=== PATIENT | male | born 1950 | race Caucasian/White ===

== ENCOUNTER 2019-10-30 15:33 | Inpatient (IN) | payer OTHER ==
[2019-10-30 18:04] VITALS: BMI 23.7
--- NOTE | 2019-10-30 20:45 | HP ---
CIWA Score Nausea/Vomitin-Int. Nausea w/Dry Heave Muscle Tremors: 3 Anxiety: 3 Agitation: 4-Moderately Restless Paroxysmal Sweats: 3 (Increased facial moisture) Orientation: 1-Uncertain about Date Tacttile Disturbances: 0-None Auditory Disturbances: 0-None Visual Disturbances: 0-None Headache: 4-Moderately Severe (States headache is a "9") CIWA-Ar Total Score: 22 - Admission Criteria OASAS Guidelines: Admission for Medically Managed Detox: Requires at least one of the followin. CIWA greater than 12 2. Seizures within the past 24 hours 3. Delirium tremens within the past 24 hours 4. Hallucinations within the past 24 hours 5. Acute intervention needed for co occurring medical disorder 6. Acute intervention needed for co occurring psychiatric disorder 7. Severe withdrawal that cannot be handled at a lower level of care (continued vomiting, continued diarrhea, abnormal vital signs) requiring intravenous medication and/or fluids 8. Patient presents the following: CIWA greater than 12 Admission Criteria Met: Admission criteria met Admitting History and Physical - Smoking History Smoking history: Current every day smoker Have you smoked in the past 12 months: Yes Aproximately how many cigarettes per day: 10 Admission ROS S - [facility] Chief Complaint: I'm here because I'm dependent on alcohol and I want to stop. It's created lots of problems at work and home. I need to get my life back." Allergies/Adverse Reactions: Allergies Allergy/AdvReac Type Severity Reaction Status Date / Time No Known Allergies Allergy Verified 10/30/19 17:57 History of Present Illness: 68 yo presents w/ alcohol withdrawal symptoms seeking detox. Denies seizures or blackouts. Alcohol use began as a teen. Currently drinks a pint of liquor or more daily x past 2 years. Nicotine use began at age 16. Currently smokes 1/2 PPD. PMHx: PPD+ MHHx: Depression. Anxiety. Sees a MH Provider off and on at [facility]. Denies thoughts of harming self or others. SHx: Domiciled. Unemployed. Denies legal issues. Search Terms: Flo Carreon, 1950 Search Date: 10/30/2019 08:43:40 PM The Drug Utilization Report below displays all of the controlled substance prescriptions, if any, that your patient has filled in the last twelve months. The information displayed on this report is compiled from pharmacy submissions to the Department, and accurately reflects the information as submitted by the pharmacies. This report was requested by: Chasidy Santos | Reference #: [id number] There are no results for the search terms that you entered. Exam Limitations: No Limitations - Ebola screening Have you traveled outside of the country in the last 21 days: No Have you had contact with anyone from an Ebola affected area: No Have you been sick,other than usual withdrawal symptoms: No Do you have a fever: No - Review of Systems Constitutional: Chills, Diaphoresis, Changes in sleep (Difficulty falling and staying asleep.), Weight Stable EENT: reports: Blurred Vision, Throat Pain (Sore throat x fews days) Respiratory: reports: Cough (x 1 week - non-productive) Cardiac: reports: No Symptoms Reported GI: reports: Diarrhea (Brownish, liquidy BM), Nausea, Vomiting : reports: No Symptoms Reported Musculoskeletal: reports: Joint Pain (Both knees sore - age related) Integumentary: reports: No Symptoms Reported Neuro: reports: Headache (Both temples - throbbing - "9". Denies head injury or hx migraines.), Tremors Endocrine: reports: Increased Thirst Hematology: reports: No Symptoms Reported Psychiatric: reports: Judgement Intact, Agitated, Anxious, Depressed ( Denies thoughts of harming self or others.), other (Unsue of date) Patient History - Patient Medical History Hx Asthma: No Hx Chronic Obstructive Pulmonary Disease (COPD): No Hx Cardiac Disorders: No Hx Hypertension: No Hx Seizures: No Hx Diabetes: No Hx Gastrointestinal Disorders: No Hx Genitourinary Disorders: No Hx Sexually Transmitted Disorders: No Hx Renal Disease (ESRD): No Hx Depression: Yes Hx Suicide Attempt: No Hx Schizophrenia: No - Patient Surgical History Past Surgical History: Yes Hx Neurologic Surgery: No Hx Cataract Extraction: No Hx Cardiac Surgery: No Hx Lung Surgery: No Hx Breast Surgery: No Hx Breast Biopsy: No Hx Abdominal Surgery: No Hx Appendectomy: No Hx Cholecystectomy: No Hx Genitourinary Surgery: No Hx Section: No Hx Orthopedic Surgery: No Other Surgical History: HERNIA-2019 Anesthesia Reaction: No - PPD History Previous Implant?: Yes Documented Results: Negative w/o proof Implanted On Prior [facility] Admission?: No PPD to be Administered?: Yes - Smoking Cessation Smoking history: Current every day smoker Have you smoked in the past 12 months: Yes Aproximately how many cigarettes per day: 10 Hx Chewing Tobacco Use: No Initiated information on smoking cessation: Yes 'Breaking Loose' booklet given: 10/30/19 - Substance & Tx. History Hx Alcohol Use: Yes Hx Substance Use: Yes Substance Use Type: Alcohol Hx Substance Use Treatment: Yes (detox, rehab) - Substances abused Alcohol Substance route: Oral Frequency: Daily Amount used: LIQUOR- 3 PINTS Age of first use: 15 Date of last use: 10/29/19 Admission Physical Exam [facility] - Vital Signs Vital Signs: Vital Signs - 24 hr 10/30/19 10/30/19 17:50 19:24 Temperature 98.1 F 98.1 F Pulse Rate 72 72 Respiratory 20 20 Rate Blood Pressure 125/80 125/80 - Physical General Appearance: Yes: Nourished, Mild Distress, Tremorous, Irritable, Sweating (Increased facial moisture), Anxious HEENTM: Yes: Hearing grossly Normal, Normal ENT Inspection, Normocephalic, Normal Voice, LINSEY, Pharynx Normal, Other (Thickened saliva) Respiratory: Yes: Lungs Clear (Pulse Ox = 97 %), Normal Breath Sounds, No Respiratory Distress Neck: Yes: No masses,lesions,Nodules, Supple Breast: Yes: Breast Exam Deferred Cardiology: Yes: Regular Rhythm, Regular Rate, S1, S2 Abdominal: Yes: Non Tender, Flat, Soft, Increased Bowel Sounds Genitourinary: Yes: Within Normal Limits Back: Yes: Normal Inspection Musculoskeletal: Yes: full range of Motion, Gait Steady Extremities: Yes: Normal Capillary Refill, Tremors (Mild tremors) Neurological: Yes: Alert, Motor Strength 5/5, Normal Response Integumentary: Yes: Normal Color, Warm, Moist (Increased facial moisture), Other (Decreased skin turgor) Lymphatic: Yes: Within Normal Limits - Diagnostic (1) Alcohol dependence, uncomplicated Current Visit: Yes Status: Acute (2) Dehydration Current Visit: Yes Status: Acute (3) History of positive PPD Current Visit: Yes Status: Chronic Cleared for Admission [facility] - Detox or Rehab [facility] Level of Care: Medically Managed Detox Regimen/Protocol: Librium Feliceed for Rehab Admission: No Breathalyzer - Breathalyzer Breathalyzer: 0 Urine Drug Screen - Test Device Lot number: [id number] Expiration date: 08/13/21 - Control Is test valid?: Yes - Results Drug screen NEGATIVE: Yes Inpatient Rehab Admission - Rehab Decision to Admit Inpatient rehab admission?: No
[2019-10-30] MEDS ORDERED: ACETAMINOPHEN 325 MG TABLET (FP) PO PRN ×2 (21:07)
[2019-10-30] MEDS ORDERED: MAGNESIUM CITRATE 300 ML BOTTLE PO PRN (21:07)
[2019-10-30] MEDS ORDERED: BISMUTH SUBSALICYLATE 524 MG/30 ML UD PO PRN (21:07)
[2019-10-30] MEDS ORDERED: MENTHOL/PHENOL 1 EACH UD MM PRN (21:07)
[2019-10-30] MEDS ORDERED: NICOTINE POLACRILEX 2 MG GUM BUC PRN (21:07)
[2019-10-30] MEDS ORDERED: chlordiazePOXIDE HCL 10 MG CAPSULE PO PRN (21:07)
[2019-10-30] MEDS ORDERED: MAG HYDROX/AL HYDROX/SIMETH 30 ML UNIT-DOSE CUP PO PRN (21:07)
[2019-10-30] MEDS ORDERED: IBUPROFEN 400 MG TABLET (FP) PO PRN (21:07)
[2019-10-30] MEDS ORDERED: guaiFENesin 200 MG/10 ML 10 ML UNIT-DOSE CUPS PO PRN (21:07)
[2019-10-30] MEDS ORDERED: MAGNESIUM HYDROX 2400MG/30ML ORAL SUSPENSION 30 ML CUP PO PRN (21:07)
[2019-10-30] MEDS: chlordiazePOXIDE HCL 25 MG CAPSULE PO SCH (22:23)
[2019-10-30] MEDS: MELATONIN 5 MG TABLETS PO PRN (22:23)
[2019-10-30] MEDS: THIAMINE HCL 100 MG TABLET (FP) PO SCH (22:23)
--- NOTE | 2019-10-31 10:27 | PN ---
S CIWA - CIWA Score Nausea/Vomitin Muscle Tremors: 2 Anxiety: 2 Agitation: 2 Paroxysmal Sweats: No Perspiration Orientation: 0-Oriented Tacttile Disturbances: 1-Very Mild Itch/Numbness Auditory Disturbances: 0-None Visual Disturbances: 0-None Headache: 2-Mild CIWA-Ar Total Score: 11 BHS Progress Note (SOAP) Subjective: alert,irritable,anxious,interrupted sleep,tremor Objective: 10/31/19 10:26 Vital Signs Temperature 97.9 F 10/31/19 06:57 Pulse Rate 56 L 10/31/19 06:57 Respiratory Rate 16 10/31/19 06:57 Blood Pressure 100/62 10/31/19 06:57 O2 Sat by Pulse Oximetry (%) labs pending Assessment: 10/31/19 10:26 withdrawal symptom Plan: continue detox librium regimen
[2019-10-31 10:36] LABS: HEMATOCRIT 39.1 % (35.4-49); MCHC 33.3 g/dl (32.0-35.9); MEAN PLT VOLUME 7.9 fl (7.5-11.1); PLATELET COUNT 353 K/MM3 (134-434); RBC 4.34 M/mm3 (4.00-5.60); RDW 16.6 % (11.9-15.9); WHITE BLOOD COUNT 9.9 K/mm3 (4.0-10.0)
[2019-10-31 10:41] LABS: ALBUMIN 3.7 g/dl (3.4-5.0); BILIRUBIN,TOTAL 0.5 mg/dL (0.2-1); BLOOD UREA NITROGEN 15.3 mg/dL (7-18); CALCIUM 9.5 mg/dL (8.5-10.1); POTASSIUM 4.6 mmol/L (3.5-5.1); TOT PROT 7.1 g/dl (6.4-8.2)
--- NOTE | 2019-10-31 10:45 | EKG ---
Test Reason : Blood Pressure : / mmHG Vent. Rate : 069 BPM Atrial Rate : 069 BPM P-R Int : 136 ms QRS Dur : 104 ms QT Int : 398 ms P-R-T Axes : 078 065 061 degrees QTc Int : 426 ms NORMAL SINUS RHYTHM NORMAL ECG NO PREVIOUS ECGS AVAILABLE Confirmed by Trevon Gill MD ([id number]) on 10/31/2019 10:44:35 AM Referred By: Confirmed By:Trevon Gill MD
[2019-10-31] MEDS: PRENATAL VITAMINS W/ FOLIC ACID TABLET (FP) PO SCH (11:15)
[2019-10-31] MEDS: NICOTINE 14 MG/24 HOURS TOPICAL PATCH TD SCH (11:15)
[2019-10-31] MEDS: chlordiazePOXIDE HCL 25 MG CAPSULE PO SCH ×2 (14:47→21:47)
[2019-10-31] MEDS: THIAMINE HCL 100 MG TABLET (FP) PO SCH (21:47)
[2019-10-31] MEDS: MELATONIN 5 MG TABLETS PO PRN (21:48)
[2019-11-01] MEDS: chlordiazePOXIDE 5 MG CAPSULE PO SCH ×3 (05:59→21:16)
[2019-11-01] MEDS: NICOTINE 14 MG/24 HOURS TOPICAL PATCH TD SCH (11:07)
[2019-11-01] MEDS: PRENATAL VITAMINS W/ FOLIC ACID TABLET (FP) PO SCH (11:07)
--- NOTE | 2019-11-01 15:16 | PN ---
S CIWA - CIWA Score Nausea/Vomitin-Mild Nausea/No Vomiting Muscle Tremors: 2 Anxiety: 2 Agitation: 2 Paroxysmal Sweats: No Perspiration Orientation: 0-Oriented Tacttile Disturbances: 1-Very Mild Itch/Numbness Auditory Disturbances: 0-None Visual Disturbances: 0-None Headache: 1-Very Mild CIWA-Ar Total Score: 9 S Progress Note (SOAP) Subjective: alert,irritable,anxious,interrupted sleep,tremor Objective: 11/01/19 15:15 Vital Signs Temperature 97.5 F L 11/01/19 13:46 Pulse Rate 60 11/01/19 13:46 Respiratory Rate 18 11/01/19 13:46 Blood Pressure 103/63 11/01/19 13:46 O2 Sat by Pulse Oximetry (%) 11/01/19 15:15 Laboratory Last Values WBC 9.9 K/mm3 (4.0-10.0) 10/31/19 07:45 RBC 4.34 M/mm3 (4.00-5.60) 10/31/19 07:45 Hgb 13.0 GM/dL (11.7-16.9) 10/31/19 07:45 Hct 39.1 % (35.4-49) 10/31/19 07:45 MCV 90.0 fl (80-96) 10/31/19 07:45 MCH 30.0 pg (25.7-33.7) 10/31/19 07:45 MCHC 33.3 g/dl (32.0-35.9) 10/31/19 07:45 RDW 16.6 % (11.9-15.9) H 10/31/19 07:45 Plt Count 353 K/MM3 (134-434) 10/31/19 07:45 MPV 7.9 fl (7.5-11.1) 10/31/19 07:45 Sodium 139 mmol/L (136-145) 10/31/19 07:45 Potassium 4.6 mmol/L (3.5-5.1) 10/31/19 07:45 Chloride 104 mmol/L (98-107) 10/31/19 07:45 Carbon Dioxide 28 mmol/L (21-32) 10/31/19 07:45 Anion Gap 6 MMOL/L (8-16) L 10/31/19 07:45 BUN 15.3 mg/dL (7-18) 10/31/19 07:45 Creatinine 1.0 mg/dL (0.55-1.3) 10/31/19 07:45 Est GFR (CKD-EPI)AfAm 89.23 10/31/19 07:45 Est GFR (CKD-EPI)NonAf 76.99 10/31/19 07:45 Random Glucose 92 mg/dL (74-106) 10/31/19 07:45 Calcium 9.5 mg/dL (8.5-10.1) 10/31/19 07:45 Total Bilirubin 0.5 mg/dL (0.2-1) 10/31/19 07:45 AST 19 U/L (15-37) 10/31/19 07:45 ALT 20 U/L (13-61) 10/31/19 07:45 Alkaline Phosphatase 91 U/L (45-117) 10/31/19 07:45 Total Protein 7.1 g/dl (6.4-8.2) 10/31/19 07:45 Albumin 3.7 g/dl (3.4-5.0) 10/31/19 07:45 RPR Titer Nonreactive (NONREACTIVE) 10/31/19 07:45 Assessment: 11/01/19 15:16 withdrawal symptom Plan: continue detox librium regimen
[2019-11-01] MEDS: MELATONIN 5 MG TABLETS PO PRN (21:16)
[2019-11-01] MEDS: THIAMINE HCL 100 MG TABLET (FP) PO SCH (21:16)
[2019-11-02] MEDS ORDERED: chlordiazePOXIDE HCL 10 MG CAPSULE PO PRN
[2019-11-02] MEDS: chlordiazePOXIDE HCL 10 MG CAPSULE PO SCH ×3 (05:50→22:12)
[2019-11-02] MEDS: NICOTINE 14 MG/24 HOURS TOPICAL PATCH TD SCH (11:16)
[2019-11-02] MEDS: PRENATAL VITAMINS W/ FOLIC ACID TABLET (FP) PO SCH (11:17)
--- NOTE | 2019-11-02 12:58 | PN ---
[facility] CIWA - CIWA Score Nausea/Vomitin-No Nausea/No Vomiting Muscle Tremors: 1-None Visible, but [place] Anxiety: 0-No Anxiety, at Ease Agitation: 0-Normal Activity Paroxysmal Sweats: No Perspiration Orientation: 0-Oriented Tacttile Disturbances: 0-None Auditory Disturbances: 0-None Visual Disturbances: 0-None Headache: 0-None Present CIWA-Ar Total Score: 1 BHS Progress Note (SOAP) Subjective: pt has no complaints. pt would like to go to rehab- to talk to counselor. O: Vital Signs - 24 hr 11/01/19 11/01/19 11/02/19 13:46 20:42 00:33 Temperature 97.5 F L 97.7 F Pulse Rate 60 61 Respiratory 18 18 18 Rate Blood Pressure 103/63 105/66 11/02/19 11/02/19 11/02/19 03:51 07:24 08:43 Temperature 97.3 F L 98.6 F Pulse Rate 48 L 58 L Respiratory 18 18 16 Rate Blood Pressure 110/62 122/77 Laboratory Tests 10/31/19 10/31/19 10/31/19 07:45 07:45 07:45 WBC 9.9 RBC 4.34 Hgb 13.0 Hct 39.1 MCV 90.0 MCH 30.0 MCHC 33.3 RDW 16.6 H Plt Count 353 MPV 7.9 Sodium 139 Potassium 4.6 Chloride 104 Carbon Dioxide 28 Anion Gap 6 L BUN 15.3 Creatinine 1.0 Est GFR (CKD-EPI)AfAm 89.23 Est GFR (CKD-EPI)NonAf 76.99 Random Glucose 92 Calcium 9.5 Total Bilirubin 0.5 AST 19 ALT 20 Alkaline Phosphatase 91 Total Protein 7.1 Albumin 3.7 RPR Titer Nonreactive a/p AUD- continue detox protocol, 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
[2019-11-02] MEDS: MELATONIN 5 MG TABLETS PO PRN (22:13)
[2019-11-02] MEDS: THIAMINE HCL 100 MG TABLET (FP) PO SCH (23:31)
[2019-11-03] MEDS ORDERED: chlordiazePOXIDE HCL 10 MG CAPSULE PO ONE (05:00)
[2019-11-03 09:48] VITALS: BP 116/74; PULSE 59; TEMP 97
[2019-11-03] MEDS: NICOTINE 14 MG/24 HOURS TOPICAL PATCH TD SCH (10:39)
[2019-11-03] MEDS: PRENATAL VITAMINS W/ FOLIC ACID TABLET (FP) PO SCH (10:39)
--- NOTE | 2019-11-03 11:27 | PN ---
S CIWA - CIWA Score Nausea/Vomitin-No Nausea/No Vomiting Muscle Tremors: 1-None Visible, but [place] Anxiety: 2 Agitation: 2 Paroxysmal Sweats: No Perspiration Orientation: 0-Oriented Tacttile Disturbances: 0-None Auditory Disturbances: 0-None Visual Disturbances: 0-None Headache: 1-Very Mild CIWA-Ar Total Score: 6 BHS Progress Note (SOAP) Subjective: pt to be discharged today. Will f/u for rehab with [facility] on Tuesday- in 2 days. Admitted for AUD- detox protocol followed, no problems during hosp stay O: Vital Signs - 24 hr 11/02/19 11/02/19 11/02/19 13:50 16:54 20:29 Temperature 98.2 F 97.3 F L 97.9 F Pulse Rate 65 65 61 Respiratory 18 18 18 Rate Blood Pressure 107/67 108/70 115/66 11/03/19 11/03/19 11/03/19 00:42 05:48 09:47 Temperature 98.2 F 97.0 F L Pulse Rate 60 59 L Respiratory 18 18 18 Rate Blood Pressure 142/65 116/74 Laboratory Tests 10/31/19 10/31/19 10/31/19 07:45 07:45 07:45 WBC 9.9 RBC 4.34 Hgb 13.0 Hct 39.1 MCV 90.0 MCH 30.0 MCHC 33.3 RDW 16.6 H Plt Count 353 MPV 7.9 Sodium 139 Potassium 4.6 Chloride 104 Carbon Dioxide 28 Anion Gap 6 L BUN 15.3 Creatinine 1.0 Est GFR (CKD-EPI)AfAm 89.23 Est GFR (CKD-EPI)NonAf 76.99 Random Glucose 92 Calcium 9.5 Total Bilirubin 0.5 AST 19 ALT 20 Alkaline Phosphatase 91 Total Protein 7.1 Albumin 3.7 RPR Titer Nonreactive
--- NOTE | 2019-11-04 17:37 | DS ---
[facility] Detox Discharge Summary Admission Date: 10/30/19 Discharge Date: 11/03/19 - History Pertinent Past History: pt to be discharged today. Will f/u for rehab with [facility] on Tuesday- in 2 days. Admitted for AUD- detox protocol followed, no problems during hosp stay - Physical Exam Results Vital Signs: Vital Signs Temperature 97.0 F L 11/03/19 09:47 Pulse Rate 59 L 11/03/19 09:47 Respiratory Rate 18 11/03/19 09:47 Blood Pressure 116/74 11/03/19 09:47 O2 Sat by Pulse Oximetry (%) - Treatment Hospital Course: Detox Protocol Followed, Detoxed Safely, Responded well - Medication Discharge Medications: Ambulatory Orders NK [No Known Home Medication] 10/30/19 - AMA Did Patient Leave Against Medical Advice: No
== END 2019-11-03 12:58 | disposition home or self-care (01) | DRG 897 ==
LOC: YASAS 15:33 → Y6N 21:54
PROVIDERS: ADMIT Allergy & Immunology; ATTEND Allergy & Immunology
PROC: HZ2ZZZZ Detoxification Services for Substance Abuse Treatment (ICD-10-PCS; principal; 2019-10-30)
DX: F10.230 Alcohol dependence with withdrawal, uncomplicated (principal); F17.210 Nicotine dependence, cigarettes, uncomplicated; F41.9 Anxiety disorder, unspecified; F32.9 Major depressive disorder, single episode, unspecified; E86.0 Dehydration; R76.11 Nonspecific reaction to tuberculin skin test without active tuberculosis
CPT/HCPCS: 36415; 71046-TC-FY; 80053; 85027; 86593; 93005; 93010